=== PATIENT | female | born 1935 | race Caucasian/White ===

== ENCOUNTER 2019-03-18 20:15 | Emergency (ER) | payer MEDICARE ==
[~2019-03-18] VITALS: Ht 149.9 cm; Wt 88.6 kg
[~2019-03-18 20:15] MED LIST: CIPROFLOXACN500 MG PO; FISH OIL1000 MG PO; LEXAPRO10 MG PO; LIPITOR40 MG PO; LOSARTAN POT25 MG PO; Levaquin PO; NEXIUM40 M1 PO; PERCOCET 5/325M1 TAB PO
[2019-03-18] MEDS ORDERED: RANITIDINE75 M1 PO (20:31)
[2019-03-18] MEDS ORDERED: FUROSEMIDE20 MG PO (20:31)
[2019-03-18 21:05] LABS: HEMATOCRIT 34.2 % (37.0-47.0); HEMOGLOBIN 10.2 g/dl (12.0-16.0); IMMATURE GRANULOCYTES 0.2 % (0.0-5.0); MEAN CELL VOLUME 64.9 fL CALC (80.0-100.0); MEAN CORPUSCULAR HGB 19.4 pG CALC (26.0-32.0); MEAN CORPUSCULAR HGB CONC 29.8 g/L CALC (32.0-36.0); NEUT# 2.34 thou/uL (2.00-7.15); RED BLOOD COUNT 5.27 mill/uL (4.20-5.60)
[2019-03-18 21:11] LABS: ALBUMIN 4.3 g/dL (3.2-5.0); ALKALINE PHOSPHATASE 61 u/l (38-126); ANION GAP 14 (6-22 (CALC)); BILIRUBIN, TOTAL 0.4 mg/dL (0.0-1.4); BUN 17 mg/dL (8-23); BUN/CREATININE RATIO 29 (12-20 (CALC)); CARBON DIOXIDE 24 mmol/l (22-30); CHLORIDE 106 mmol/l (95-108); CREATININE 0.6 mg/dL (0.5-1.0); GFR > 60 ML/MIN (>=60 (CALC)); GFR FOR AFR.AMER. > 60 ML/MIN (>=60 (CALC)); POTASSIUM 4.1 mmol/l (3.5-5.1); SGOT/AST 24 u/l (9-36); SODIUM 139 mmol/l (137-146); TOTAL PROTEIN 7.2 g/dL (6.3-8.2)
[2019-03-18 21:23] LABS: MYOGLOBIN 34 ng/mL (0 - 62)
[2019-03-18 21:31] LABS: AMYLASE 76 u/l (30-110); LIPASE 403 u/l (23-300)
[2019-03-18] MEDS ORDERED: PREVACID30 M3 PO (23:08)
[2019-03-18] MEDS ORDERED: ZOFRAN ODT4 MG PO (23:08)
[2019-03-18 23:15] VITALS: BP 157/82
== END 2019-03-18 23:15 | disposition home or self-care (01) ==
LOC: ED 20:15
PROVIDERS: Emergency Medicine
DX: R10.13 Epigastric pain (principal); K21.9 Gastro-esophageal reflux disease without esophagitis; K29.70 Gastritis, unspecified, without bleeding; K44.9 Diaphragmatic hernia without obstruction or gangrene; I10 Essential (primary) hypertension; R06.02 Shortness of breath
CPT/HCPCS: S0164

== ENCOUNTER 2020-01-09 | Emergency (ER) | payer MEDICARE ==
[~2020-01-09] MED LIST changes: +COQ PO; +FUROSEMIDE20 MG PO; +HYZAAR1 TA2 PO; +PREVACID30 M3 PO; +PROTONIX40 M2 PO; +RANITIDINE75 M1 PO; +VITAMIN D1000 UNIT PO; +ZOFRAN ODT4 MG PO
[2020-01-09 22:52] LABS: HEMATOCRIT 35.1 % (37.0-47.0); HEMOGLOBIN 10.3 g/dl (12.0-16.0); IMMATURE GRANULOCYTES 0.4 % (0.0-5.0); MEAN CELL VOLUME 65.1 fL CALC (80.0-100.0); MEAN CORPUSCULAR HGB 19.1 pG CALC (26.0-32.0); MEAN CORPUSCULAR HGB CONC 29.3 g/L CALC (32.0-36.0); NEUT# 2.51 thou/uL (2.00-7.15); RED BLOOD COUNT 5.39 mill/uL (4.20-5.60); RED CELL DISTRI WIDTH 15.2 % (11.5-15.5)
[2020-01-09 23:02] LABS: ALBUMIN 4.1 g/dL (3.2-5.0); ALKALINE PHOSPHATASE 70 u/l (38-126); ANION GAP 13 (6-22 (CALC)); BILIRUBIN, TOTAL 0.5 mg/dL (0.0-1.4); BUN 15 mg/dL (8-23); BUN/CREATININE RATIO 27 (12-20 (CALC)); CARBON DIOXIDE 26 mmol/l (22-30); CHLORIDE 105 mmol/l (95-108); CREATININE 0.6 mg/dL (0.5-1.0); GFR > 60 ML/MIN (>=60 (CALC)); GFR FOR AFR.AMER. > 60 ML/MIN (>=60 (CALC)); LIPASE 51 u/l (23-300); POTASSIUM 4.2 mmol/l (3.5-5.1); SGOT/AST 26 u/l (9-36); SODIUM 139 mmol/l (137-146); TOTAL PROTEIN 7.5 g/dL (6.3-8.2)
[2020-01-09 23:17] LABS: ACT PARTIAL THROMBO TIME 24.3 SECONDS (20.0-32.5); PROTHROMBIN TIME 10.7 SECONDS (9.0-12.5)
[2020-01-10] MEDS ORDERED: ZOFRAN4 MG/TAB PO (00:29)
== END 2020-01-10 00:30 | disposition home or self-care (01) ==
PROVIDERS: Emergency Medicine
DX: R11.0 Nausea (principal); I10 Essential (primary) hypertension

== ENCOUNTER 2020-01-19 | Emergency (ER) | payer MEDICARE ==
[~2020-01-19] MED LIST changes: +ZOFRAN4 MG/TAB PO
[2020-01-19 13:30] LABS: HEMATOCRIT 33.4 % (37.0-47.0); IMMATURE GRANULOCYTES 0.2 % (0.0-5.0); MEAN CORPUSCULAR HGB 19.2 pG CALC (26.0-32.0); MEAN CORPUSCULAR HGB CONC 29.9 g/L CALC (32.0-36.0); NEUT# 2.95 thou/uL (2.00-7.15); RED BLOOD COUNT 5.22 mill/uL (4.20-5.60); RED CELL DISTRI WIDTH 15.4 % (11.5-15.5)
[2020-01-19 13:44] LABS: ALBUMIN 3.9 g/dL (3.2-5.0); ALKALINE PHOSPHATASE 56 u/l (38-126); ANION GAP 12 (6-22 (CALC)); BILIRUBIN, TOTAL 0.4 mg/dL (0.0-1.4); BUN 15 mg/dL (8-23); BUN/CREATININE RATIO 33 (12-20 (CALC)); CARBON DIOXIDE 24 mmol/l (22-30); CHLORIDE 105 mmol/l (95-108); CREATININE 0.4 mg/dL (0.5-1.0); GFR > 60 ML/MIN (>=60 (CALC)); GFR FOR AFR.AMER. > 60 ML/MIN (>=60 (CALC)); POTASSIUM 3.8 mmol/l (3.5-5.1); SGOT/AST 24 u/l (9-36); SODIUM 138 mmol/l (137-146); TOTAL PROTEIN 6.7 g/dL (6.3-8.2)
[2020-01-19 13:57] LABS: MYOGLOBIN 31 ng/mL (0 - 62)
[2020-01-19 15:46] LABS: URINE BILIRUBIN - DIPSTICK NEGATIVE (NEGATIVE); URINE BLOOD DIPSTICK NEGATIVE (NEGATIVE); URINE COLOR YELLOW; URINE GLUCOSE - DIPSTICK NEGATIVE (NEGATIVE); URINE KETONE NEGATIVE (NEGATIVE); URINE LEUK ESTERASE NEGATIVE (NEGATIVE); URINE NITRITE - DIPSTICK NEGATIVE (Negative); URINE PROTEIN - DIPSTICK NEGATIVE (NEG-TRACE); URINE UROBILINOGEN - DIPSTICK 0.2 E.U./dL (0.2)
== END 2020-01-19 16:06 | disposition home or self-care (01) ==
PROVIDERS: Emergency Medicine
DX: F41.9 Anxiety disorder, unspecified (principal); I10 Essential (primary) hypertension; K21.9 Gastro-esophageal reflux disease without esophagitis; R06.02 Shortness of breath

== ENCOUNTER 2021-10-13 17:54 | Emergency (ER) | payer MEDICARE ==
[~2021-10-13] VITALS: Ht 152.4 cm; Wt 62.0 kg
[2021-10-13] MEDS ORDERED: LEXAPRO10 MG PO (19:07)
[2021-10-13] MEDS ORDERED: ACID REDUCER PO (19:07)
[2021-10-13] MEDS ORDERED: ULTRAM50 M1 PO (19:10)
[2021-10-13 19:33] VITALS: BP 132/72
== END 2021-10-13 20:00 | disposition home or self-care (01) ==
LOC: ED 17:54
DX: S53.401A Unspecified sprain of right elbow, initial encounter (principal); I10 Essential (primary) hypertension; K21.9 Gastro-esophageal reflux disease without esophagitis; W18.2XXA Fall in (into) shower or empty bathtub, initial encounter; Y93.E9 Activity, other interior property and clothing maintenance; Y92.002 Bathroom of unspecified non-institutional (private) residence as the place of occurrence of the external cause